=== PATIENT | male | born 1955 | race Caucasian/White ===

== ENCOUNTER 2016-06-04 16:48 | Observation (INO) | payer BC ==
[~2016-06-04] VITALS: Ht 180.3 cm; Wt 83.6 kg
--- NOTE | ~2016-06-04 | ESTC ---
Cardiac Perfusion Imaging Demographics Patient Name MARIE Linares Gender Male Patient Number [id number] Race Visit Number [id number] [place] [id number] Room Number G6338 Accession Number [id number] Height 71 inches Date of 1955 Weight 180 pounds Interpreting Cooper Haley Date of study 06/05/2016 Physician Supervising /CARMEN Haley NM Technologist Emiliano Martinez MD Ordering Physician Cooper Haley Stress Christina Ray MD voice intercept technician RDCS, RVT Renée Linares Stress ECG Reading Cooper Haley Nurse Chiki Soares Physician Procedure Procedure Type: Nuclear Stress Test:Cardiolite Stress Test Procedure Start time: 06/05/2016 12:00 Indications: Chest pain. Risk Factors The patient risk factors include:prior PCI on 03/09/2005;former tobacco use, treated hypertension, last creatinine: 0.9 mg/dl and creatinine clearance: 100.8 ml/min. Conclusions Summary No TID. Small to medium reversible moderate to severe defect involving the basal half of lateral wall. Normal EF and WM. DTS:3(Moderate risk). Stress Protocols Resting ECG RSR. Pre-stress physical exam: Un changed. Predicted HR: 160 bpm ECG Findings [address] depression inferolateral leads consistent with ischemia. Arrhythmias PVCs. One triplet. Symptoms No chest pain. Stress Interpretation Duration:8:18 mins. Acheived:96% MPHR. METs:10.10. DP:31 K. Hypertensive BP response. Reason for termination:Fatigue and SOB. EKG:Positive for ischemia. PVCs and one triplet. DTS:3(Moderate risk). Imaging Results High risk findings Summed scores - Summed stress score: 2 - Summed rest score: 1 - Summed difference score: 1 Stress ejection Ejection fraction:63 % EDV :93 ml ESV :34 ml Stroke volume :59 ml LV mass :144 gr LV size:Normal Normal LV function Imaging Protocols Rest Stress Isotope:Tc99m Sestamibi IV Isotope: Tc99m Sestamibi IV Isotope dose:12.4 mCi Isotope dose:38.1 mCi Date:06/05/2016 10:10 Date:06/05/2016 11:53 Technique: SPECT Technique: Gated Supine SPECT Supine Scan Time:45-60 minutes post Scan Time:15-30 minutes post injection injection Medical History Admission Medications + +------+ + + +--------+ !Name !Dosage!Times per day !Start date !Stop date !Details ! + +------+ + + +--------+ !Beta Narcisa (any) ! ! ! ! ! ! + +------+ + + +--------+ Admission Data Admission date: 06/04/2016 Admission Time: 18:50 Hospital Status: Inpatient. Signatures dtt: Sudha Gamboa dtd: 06/05/16 [facility] Physician Self Edit
--- NOTE | ~2016-06-04 | HP ---
PATIENT'S NAME: DUSTIN SALAZAR [facility] AGE: 61 Y [address] ROOM: G6338 [place], [place] [address] LOCATION: GPCU ADMIT DATE: 06/04/2016 History & Physical DISCHARGE DATE: FAMILY PHYSICIAN: Benja Pitt MD ATTENDING PHYSICIAN: Sudha Gamboa DATE OF SERVICE: CHIEF COMPLAINT: Chest pain and tingling. HISTORY OF PRESENT ILLNESS: The patient is a 61-year-old male, who presented to the ER with chest pain and tingling in his upper extremities. He was seen by Dr. Gamboa, timber selector and because I had seen the patient earlier in the week for an upper respiratory tract infection that was unresponsive to outpatient therapy with 2 different antibiotics. I was asked to see him for medical illness. Historically, he saw me in the office a couple of days ago and he was treated with Levaquin for URI and bronchitis that were slow to resolve. He had been on Rocephin and Zithromax prior to me seeing him. In my office, his chest x- ray showed haziness in both lower lobes, but no krunal infiltrate and heart size in the upper limits of normal. He did not complain of exertional chest pain at that time. Here, he has presented and by the time I see him, he has been evaluated by Dr. Gamboa and we are going to admit him for observation because he has an elevated CPK at around 400 and elevated CPK around 7.1. However, his troponin was normal. The rest of his labs were unremarkable. Follow along, we will leave him on Levaquin and gave him some breathing treatments and have Dr. Gamboa direct his cardiac workup. Dr. Gamboa have reviewed his chest x-ray and Dr. Gamboa thought he had have perhaps a little fluid in his left lower lobe and had an elevated D-dimer and mild low-grade cardiomegaly so a CAT scan was ordered with PE protocol and results are pending. CURRENT MEDICATIONS: 1. Levaquin 750 a day. 2. Labetalol 100 mg a day. 3. Cough medicine with codeine as needed. 4. Finasteride 5 mg a day. 5. Temazepam 30 mg a day. 6. Atorvastatin 80 mg a day. 7. Lisinopril 10 mg a day. 8. Aspirin 81 mg a day. PATIENT'S NAME: DUSTIN SALAZAR [facility] AGE: 61 Y [address] ROOM: [place] [id number] LOCATION: GPCU ADMIT DATE: 06/04/2016 History & Physical DISCHARGE DATE: FAMILY PHYSICIAN: Benja Pitt MD ATTENDING PHYSICIAN: Sudha Gamboa 9. Align daily. 10. Prilosec 20 mg a day. 11. Ibuprofen 200. ALLERGIES TO MEDICATIONS: No known drug allergies. PREVIOUS OPERATIONS: See nurse's notes. SOCIAL HISTORY: Does not smoke at this time. FAMILY HISTORY: Per Dr. Gamboa. REVIEW OF SYSTEMS: Positive for recent URI and bronchitis, unresponsive thus far to outpatient therapy. Positive for hypertension. Positive for BPH. Positive for insomnia. Positive for hyperlipidemia. Positive for hypertension. Positive for GERD. Otherwise, see nurse's database form. PHYSICAL EXAMINATION: GENERAL: Male, lying in the cart, oriented to person, place, time, and competent. When I see him, he does not complain of chest pain or tingling. HEENT: Shows eyes unremarkable. TMs not visualized. Posterior pharynx is slightly erythematous. NECK: Unremarkable. LUNGS: Clear. I do not hear wheeze or rub. HEART: Shows no murmur, gallop, or rub. ABDOMEN: Soft without point tenderness. PELVIC AND RECTAL: Not done. EXTREMITIES: Unremarkable. NEUROLOGIC: Grossly intact. ASSESSMENT: 1. Chest pain with tingling and elevated D-dimer and elevated CPK with normal troponin. 2. Recent upper respiratory tract infection and bronchitis, unresponsive to outpatient therapy. Currently on Levaquin x2 days. 3. Hypertension, essential. 4. Benign prostatic hypertrophy. 5. Insomnia. 6. Hyperlipidemia. 7. Gastroesophageal reflux disease. PATIENT'S NAME: DUSTIN SALAZAR [facility] AGE: 61 Y [address] ROOM: [place] [address] LOCATION: GPCU ADMIT DATE: 06/04/2016 History & Physical DISCHARGE DATE: FAMILY PHYSICIAN: Benja Pitt MD ATTENDING PHYSICIAN: Sudha Gamboa PLAN: Per Dr. Gamboa. MD OLGA SUTHERLAND/ericka /[id number] D: [id number] T: [id number] HISTORY & PHYSICAL
--- NOTE | ~2016-06-04 | HP ---
PATIENT'S NAME: DUSTIN SALAZAR [facility] AGE: 61 Y [address] ROOM: G6338 [place], [place] [address] LOCATION: GPCU ADMIT DATE: 06/04/2016 History & Physical DISCHARGE DATE: FAMILY PHYSICIAN: Benja Pitt MD ATTENDING PHYSICIAN: Sudha Gamboa DATE OF SERVICE: PATIENT OF: Fredi Tan MD. HISTORY OF PRESENT ILLNESS: Mr. Salazar is a 61-year-old male patient who was not feeling well this afternoon and he called the natural resources professor. He had a multivessel stenting number of years ago and his symptoms were somewhat reminiscent of the symptoms prior to his stenting and so his called me. I met Mr. Salazar in the emergency room where he was beginning to feel a little better. His illness started about 3 weeks earlier with possibly low-grade fever and cough and phlegm, for which he was seen in [facility]. He was prescribed Z- Mitesh. After that, he had a 2nd course of antibiotics from routine followup he had with me. He still continued to have the same symptoms and he was seen by Dr. Tan yesterday and his chest x-ray really did not show anything significant, and he was started on Levaquin yesterday. His sputum continues to be green without any hemoptysis. He is somewhat wheezy and somewhat short of breath. He also has noted diarrhea about few times over the last 48 hours. Today, he was staying fairly active and was doing some work around the house when he all of a sudden began to notice somewhat weak and possibly lightheaded. He went and sat in a recliner and got his blood pressure checked, which was 180 systolic. He started to note that his arms were going to sleep and his legs were tingly. These symptoms are somewhat similar to the symptoms he had prior to having stents put in his heart arteries number of years ago. He called natural resources professor and they gave him aspirin and 3 nitroglycerins en route and currently he has most of his symptoms resolved except the numbness in his arms. He also notes that his teeth hurt and there was some burning in his neck during all these episodes. The patient has never had any chest pains before. Currently, he does not complain about any shortness of breath. His cough, however, is not getting better. He is functional class 2 with no paroxysmal nocturnal dyspnea or orthopnea. He denies any lightheadedness, dizziness, syncope, presyncope, palpitations, or ankle swelling. The patient has history of hypertension and elevated cholesterol. He is not a diabetic. He never smoked and there is family history of premature coronary PATIENT'S NAME: DUSTIN SALAZAR [facility] AGE: 61 Y [address] ROOM: [place] [address] [facility] ADMIT DATE: 06/04/2016 History & Physical DISCHARGE DATE: FAMILY PHYSICIAN: Benja Pitt MD ATTENDING PHYSICIAN: Sudha Gamboa artery disease. There is no prior history of [place]. He does have a history of multivessel stenting. He denies rheumatic fever, heart murmur, heart failure, dilated or enlarged heart, or any diagnosed arrhythmias. There was a suspicion that at one point he may have had atrial fibrillation, but this was never documented. This was during a postop period after he had surgery done on his right hand. MEDICATIONS: His current list of medications are, 1. Labetalol 1 daily. 2. Lisinopril 10 b.i.d. 3. Atorvastatin 40 mg 1 a day. 4. Temazepam 30 mg at bedtime. 5. Levaquin. ALLERGIES: LIPITOR WHICH CAUSES HIS LEGS TO TINGLE. PAST MEDICAL HISTORY: 1. History of left shoulder surgery. 2. Left side of his face was hurt recently and has a bruise on it. 3. Right hand surgery. 4. Fracture of C-spine x2 number of years ago. 5. Right foot fracture. SOCIAL HISTORY: The patient is currently unemployed. His appetite is poor. He has lost about 15 pounds in weight. He denies abusing alcohol. Sleep is fair. FAMILY HISTORY: Positive for premature coronary artery disease. REVIEW OF SYSTEMS: 12-point review of systems reveal, 1. The patient has mostly a head cold and sinus problems. 2. Heartburns. 3. Kidney stone. 4. Decreased urinary stream. 5. DJD. 6. Skin cancer. PHYSICAL EXAMINATION: VITAL SIGNS: On examination, his blood pressure is 160/80, heart rate is 60s and regular, respirations are 18, and afebrile. PATIENT'S NAME: DUSTIN SALAZAR [facility] AGE: 61 Y [address] ROOM: [facility] [place], [place] [address] LOCATION: GPCU ADMIT DATE: 06/04/2016 History & Physical DISCHARGE DATE: FAMILY PHYSICIAN: Benja Pitt MD ATTENDING PHYSICIAN: Sudha Gamboa HEENT: Normal. NECK: Supple with no JVD, thyromegaly, lymphadenopathy, or carotid bruit. CARDIAC: PMI is not well located. First and second heart sounds are regular. There are no added sounds or murmurs. CHEST: Mostly clear that I do not hear any crackles or extensive wheezing at this time. ABDOMEN: Soft and nontender. Bowel sounds are normally present. EXTREMITIES: Reveal no edema. Central nervous system is intact. ASSESSMENT: A 61-year-old male patient with hypertension, hyperlipidemia, and family history of premature coronary artery disease and known multivessel stenting number of years ago presents with symptoms of tingling in his hands as well as his legs along with some burning in his throat as well as his teeth were hurting him today. These were some of the symptoms he felt prior to his PCI. His initial EKG shows an occasional PVC. There are no acute changes noted. His troponins are negative. Initial troponin is negative. The patient since then has been feeling improved. The patient also has been having a respiratory infection of some sort for the past 3 weeks and coughing a lot. His chest x-ray shows that the right upper hilum looks a little bit more prominent. RECOMMENDATIONS: We will admit him to PCU, rule him out, get an echocardiogram, possibly do a stress testing. If the D-dimer is elevated, we will get a CT of the chest with PE protocol. I have called and talked with Dr. Tan regarding his cough and he is going to stop by and make sure that he has seen him today. MD BLANK OLEARY/ericka /[id number]: [id number] HISTORY & PHYSICAL
--- NOTE | ~2016-06-04 | ECHO ---
Transthoracic Echocardiography Report (TTE) Demographics Patient Name DUSTIN SALAZAR Date of Study 06/05/2016 Patient Number [id number] Visit Number [id number] Date of 1955 Room Number G6338 Gender Male Number Age 61 year(s) Referring Cooper Haley Spinning Operator Brooklyn Ryan Physician MD Christina Ray [facility], Yoandy Bazzi MD RVT Physician Interpreting Cooper Haley Rack Washer Physician Supervising Ordering Cooper Haley MD/MLP Physician Nurse Stress Postal Mail Carrier Conclusions Contractility Score Summary Normal Left Ventricular contractility was noted. Summary The estimated left ventricular ejection fraction is 60% with normal WM.The left ventricle is normal in size .Mild concentric left ventricular hypertrophy. Mild mitral regurgitation by color Doppler. Procedure Type of Study TTE procedure:2D Echocardiogram, M-Mode, Doppler , Color Doppler. Procedure Date Date: 06/05/2016 Start: 07:30 AM Study Location: Inpatient Portable Technical Quality: Adequate visualization Indications:Chest pain. Appropriate Use Criteria: 9 Patient Status: Routine HR: 54 bpm BP: 138/79 mmHg M-Mode/2D Measurements LV Diastolic Dimension: 2.95 cm LV Systolic Dimension: 2.01 cm LV Septum Diastolic: 1.22 cm LV PW Diastolic: 1.31 cm AO Root Dimension: 2.7 cm Cardiac Output: 4.82 l/min LA Dimension: 3.9 cm LVOT: 2.1 cm LVOT VTI: 25.8 cm RV Base: 3.58 cm LV Stroke volume: 89.32 ml RV Length: 6.43 cm TAPSE: 2.06 cm TDI-S': 13.2 cm/s Doppler Measurements AV Peak Velocity: 1.31 m/s MV Peak E-Wave: 0.87 m/s AV Peak Gradient: 6.86 mmHg MV Peak A-Wave: 0.61 m/s AV Mean Gradient: 4 mmHg MV E/A Ratio: 1.44 LVOT Peak Velocity: 1.15 m/s MV Deceleration Time: 201 msec TR Velocity:1.63 m/s PV Peak Velocity: 1.21 m/s TR Gradient:10.63 mmHg PV Peak Gradient: 5.86 mmHg A' Septal Velocity: 0.08 m/s E' Septal Velocity: 0.09 m/s A' Lateral Velocity: 0.14 m/s E' Lateral Velocity: 0.13 m/s Findings Left Ventricle The left ventricle is normal in size,EF and WM.Mild concentric left ventricular hypertrophy. Right Ventricle Normal right ventricle structure and function. Left Atrium Normal left atrial size. Right Atrium Normal right atrial size. Mitral Valve Normal mitral valve structure and function. Mild mitral regurgitation by color Doppler. Aortic Valve Normal aortic valve structure and function. Tricuspid Valve Normal tricuspid valve structure and function. Trivial tricuspid regurgitation by color Doppler. Pulmonic Valve Normal pulmonic valve structure and function. Trivial pulmonic valve regurgitation by color Doppler. Pericardial Effusion No evidence of pericardial effusion. Miscellaneous Visualized portions of the aortic root and ascending aorta appear normal in size. Pleural Effusion No evidence of pleural effusion. Contractility Score LV regional wall motion:(0-Non visualized 1-Normal 2-Hypokinesis 3-Akinesis 4-Dyskinesis 5-Aneurysm) Signature dtt: Sudha Gamboa dtd: 06/05/16 0730 Physician Self Edit
--- NOTE | ~2016-06-04 | DS ---
PATIENT'S NAME: DUSTIN SALAZAR [facility] AGE: 61 Y [address] ROOM: [facility] [place], [place] [address] LOCATION: GPCU ADMIT DATE: 06/04/2016 Discharge Summary DISCHARGE DATE: 06/06/2016 FAMILY PHYSICIAN: Benja Pitt MD ATTENDING PHYSICIAN: Sudha Gamboa DISCHARGE DIAGNOSES: 1. Cough secondary to postviral syndrome. 2. Neck pain and teeth pain, possibly anginal equivalent. Evaluation revealed a 60% mid left anterior descending lesion with iFR of 0.94. Previously placed stents were patent. Normal ejection fraction. 3. Hypertension, under control. 4. LDL is 80. DISCHARGE INSTRUCTIONS: 1. Dietary instructions. 2. Groin precautions. 3. Nitroglycerin instructions. 4. Follow up with Dr. Tan in 7 days. 5. Follow up with myself in 2 weeks. 6. Activity as tolerated. DISCHARGE MEDICATIONS: 1. Lisinopril 10 mg twice a day. 2. Labetalol 100 mg at night. 3. Levofloxacin 750 mg once a day for a total of 10 days. 4. Omeprazole 20 mg once a day. 5. Temazepam 30 mg at bedtime. 6. Cough syrup. 7. Proscar 5 mg every night at bedtime. 8. Rosuvastatin 40 mg a day. 9. Align probiotic. 10. Lotensin and hydrochlorothiazide 10/12.5 b.i.d. 11. Ativan 0.25 mg b.i.d. p.r.n., #30, with no refills. 12. Nitroglycerin 0.4 mg sublingual p.r.n. chest pain. HOSPITAL COURSE: The patient was admitted to the PCU and was ruled out for [place]. His D-dimer was elevated. A CT chest was done which was negative. Because of the atypical throat and teeth pain, the patient underwent a Cardiolite study which was positive for ischemia, so a cardiac catheterization procedure was performed. This revealed a mid LAD lesion of 60% with an iFR of 0.94. Medical treatment was then recommended. His stress test reveals no TID. He has a small to medium, reversible, moderate to severe defect involving the basal half of the lateral wall which was the reason for the catheterization. His Ramirez Treadmill Score was 3. He had normal EF and wall PATIENT'S NAME: DUSTIN SALAZAR [facility] AGE: 61 Y [address] ROOM: [place] [address] LOCATION: GPCU ADMIT DATE: 06/04/2016 Discharge Summary DISCHARGE DATE: 06/06/2016 FAMILY PHYSICIAN: Benja Pitt MD ATTENDING PHYSICIAN: Sudha Gamboa. RECOMMENDATIONS: The patient will be managed with aggressive secondary prevention measures and watch him for any symptoms that he might develop. MD BLANK OLEARY/ericka /[id number] d: 06/15/160 t: 06/18/16 0745, DISCHARGE SUMMARY
--- NOTE | ~2016-06-04 | CATH ---
Cardiac Diagnostic + PCI Report Demographics Patient Name MARIE Linares Gender Male Date of 1955 Age 61 year(s) Patient Number [id number] Date of Study 06/06/2016 Visit Number [id number] Room Number G6[address] [place] [id number] Ht 180.34 cm Wt 81.65 kg Referring Cooper Primary Physician Physician Sudha BURDEN Performing Cooper Secondary Physician Physician Sudha BURDEN Diagnostic Cooper Assisting Physician Physician Sudha BURDEN Interventional Cooper Physician Chalk Machine Operator Physician Sudha BURDEN Findings and Conclusions Diagnostic Findings and Conclusion Stents seen LVEDP 12 Mild to moderate CAD Stents LAD, LCx, and RCA are patent Diagnostic Recommendations iFR LAD Interventional Findings and Conclusion iFR LAD lesion is 0.94 Interventional Recommendations Aggressive secondary prevention measures. Procedure Description The patient was brought to the diagnostic cardiac catheterization-EP laboratory in the fasting, non-sedated state. Informed consent was obtained in the written and verbal form after the risks and benefits were explained. The patient had no further questions and agreed to proceed. The planned puncture-incision site(s) were shaved and prepped with ChloraPrep and draped in the usual sterile manner. Conscious sedation, supplemental oxygen, and pain control medications were delivered by a registered nurse under physician guidance. Surface ECG rhythm, blood pressure measurement, and pulse oximetry were monitored throughout the procedure. Arterial access. The access site was infiltrated with lidocaine. The vessel was entered with the Seldinger technique. A sheath was advanced into the vessel and used for catheter placement. Selective left coronary angiography. A catheter was advanced into the left coronary vessel ostium under Fluoroscopic guidance. Contrast was injected by hand. Images were obtained in multiple projections. Selective right coronary angiography. A catheter was advanced into the right coronary vessel ostium under fluoroscopic guidance. Contrast was injected by hand. Images were obtained in multiple projections. Left heart catheterization. A catheter was advanced across the aortic valve to the left ventricle under fluoroscopic guidance. Resting hemodynamics were obtained. iFR measurement was performed. The vessel was entered with a guiding catheter. The iFR wire was normalized and then advanced across the lesion. Measurements were taken. Arterial artery hemostasis was achieved. The patient was transferred to a regular nursing floor via cart accompanied by a nurse. The patient left the laboratory in stable condition. Procedure Procedure Type Diagnostic procedure:Angiography:, Coronary Angios w/LHC PCI procedure:Additional Imaging:, FFR/iFR:, Initial Vessel Indications: Chest pain. The procedure was explained in detail to the patient. Risks, complications and alternative treatments were reviewed. Written consent was obtained. Medications Reviewed with Patient prior to Procedure. Angiographic Findings Dominance: Right Cardiac Arteries and Lesion Findings LMCA: Normal (0% Stenosis).Large, normal. LAD: Mid LAD sent is preceeded and followed by 50% diffuse lesions. Stent is patent. Diagonals are small.There is a previous stent on Mid LAD. Lesion on Mid LAD: 50% stenosis . Comments:iFR 0.94 LCx: Diffuse irregularity.Circumflex stent is patent. Mild diffuse disease.There is a previous stent on Mid CX. RCA: Stent at ostium patent. After stent 25% mild diffuse disease.There is a previous stent on Prox RCA. Lesion on Prox RCA: Mid subsection.25% stenosis . Ramus: Diffuse irregularity.Mild diffuse disease. Coronary Tree Procedure Data Procedure Date Date: 06/06/2016Start: 03:03 PMEnd: 04:01 PM Entry Locations - Retrograde Percutaneous access was performed through the Right Femoral artery (Primary location). A 6 Fr sheath was inserted. Hemostasis was successfully obtained using Perclose ProGlide (Vela). Closure Comments: Deployed by [employer].. Procedure Medications Order and Administration + + + + + !Time !Medication !Dosage !Route ! + + + + + !06/06/2016 02:55 PM !Versed !1 mg !I.V. ! + + + + + !06/06/2016 02:59 PM !Fentanyl !25 mcg !I.V. ! + + + + + !06/06/2016 03:25 PM !Heparin (ACC_3) !2500 units !I.V. bolus ! + + + + + !06/06/2016 03:36 PM !Heparin (ACC_3) !2000 units !I.V. bolus ! + + + + + !06/06/2016 03:42 PM !Heparin (ACC_3) ! !I.V. bolus ! + + + + + !06/06/2016 03:45 PM !Fentanyl !25 mcg !I.V. ! + + + + + Devices Used - A6 Fr. BS JR 4 Diag. Catheterwas used for:Right coronary angiography. - A6 Fr. BS JL 4 Diag. Catheterwas used for:Left coronary angiography. - A6 Fr. XB 3.5 Guide Catheterwas used for:Circumflex Intervention. Contrast Material - Isovue [id number] ml Fluoroscopy Time: Diagnostic: 7:24 minutes. Total: 7:24 minutes. Fluoroscopy Dose: Diagnostic: 1462 mGy. Total: 1462 mGy. Estimated Blood Loss: 100 ml. Medical History Allergies - Other:(Lipitor). Risk Factors The patient risk factors include:prior PCI on 03/09/2005;treated hypertension, last creatinine: 0.9 mg/dl, creatinine clearance: 100.8 ml/min and former tobacco use. Admission Data Admission Date: 06/04/2016 Admission Time: 06:50 PM Insurance Payors: Private health insurance. Admission Medications + +------+------+ + + + + !Medication !Dosage!Times !Last !Last !Administered !Comments ! ! ! !Per !Delivery !Delivery ! ! ! ! ! !Day !Date !Time ! ! ! + +------+------+ + + + + !Beta ! ! ! ! !Yes ! ! !Narcisa ! ! ! ! ! ! ! !(any) ! ! ! ! ! ! ! + +------+------+ + + + + Clinical Evaluation Leading to Procedure - The patient's CAD presentation was assessed as: Unstable angina. - The patient's anginal syndrome during the past two weeks was assessed as: Class IV according to the [place] [employer] Classification System (CCS). Anti-anginal medications were prescribed during the past two weeks. The medication is: Beta Blockers. Hemodynamics Condition: Rest O2 Consumption: Estimated: 228.51Heart Rate: 58 bpm Pressures (mmHg) +-----+ + !Site !Pressure ! +-----+ + !LV !163/-2 ,13 ! +-----+ + !LV !158/14 ,12 ! +-----+ + !AO !167/78 (112) ! +-----+ + !LV !174/-1 ,13 ! +-----+ + !AO !170/79 (116) ! +-----+ + !AO !173/82 (121) ! +-----+ + Valve Gradients and Areas + +---------+---------+---------+ +---------+ + !Valve !Peak !Mean !Area !Index !Flow !Source ! + +---------+---------+---------+ +---------+ + !Aortic !8 !7 ! ! ! ! ! + +---------+---------+---------+ +---------+ + !Aortic !8 !7 ! ! ! ! ! + +---------+---------+---------+ +---------+ + Shunts Oxygen Values O2 Capacity 168.64 O2 Consumption 228.51 Discharge Data Discharge Date: 06/06/2016 Hospital Status: Inpatient Signatures dtt: Sudha Gamboa dtd: 06/06/16 1503 Physician Self Edit
[2016-06-04 17:18] LABS: BASOPHIL % 0.3 %; EOSINOPHIL # 0.3 K/uL (0.0-0.5); EOSINOPHIL % 3.8 %; HEMATOCRIT 38.1 % (37.0-53.0); HEMOGLOBIN 12.4 g/dL (11.0-16.0); IMMATURE GRANULOCYTE % 0.5 %; LYMPHOCYTE # 1.6 K/uL (0.8-4.0); LYMPHOCYTE % 23.6 %; MCH 29.4 pg (27.0-34.0); MCHC 32.5 gm/dL (32.0-36.5); MCV 90.3 fl (83.0-98.0); MONOCYTE # 0.8 K/uL (0.0-1.0); MONOCYTE % 11.4 %; MPV 11.7 fl (9.4-12.4); NEUTROPHIL % 60.4 %; NRBC % 0 /100WBC (0-0.00); PLATELET COUNT 196 K/uL (150-450); RBC 4.22 M/uL (3.50-5.50); RDW-CV 13.2 % (11.9-14.6); WBC 6.7 K/uL (4.0-11.0)
[2016-06-04 17:28] LABS: INR - (THERAPEUTIC) 1.1 (0.9-1.1); PROTIME 11.1 SECONDS (9.6-11.1); PTT 28 SECONDS (25-32)
[2016-06-04 17:38] LABS: ALBUMIN 3.5 gm/dL (3.5-5.0); ALK PHOS 68 IU/L (33-138); ALT 35 IU/L (12-78); ANION GAP 15.1 (10.0-19.0); AST 34 IU/L (10-40); BLOOD UREA NITROGEN 17 mg/dL (6-24); CALCIUM 8.3 mg/dL (8.5-10.5); CHLORIDE 105 mMol/L (96-110); CO2 23 mMol/L (22-32); CPK 441 IU/L (35-332); CREATININE 1.1 mg/dL (0.6-1.3); ESTIMATED GFR (MDRD EQUATION) > 60; MAGNESIUM 1.9 mg/dL (1.3-2.6); POTASSIUM 4.1 mMol/L (3.7-5.1); SODIUM 139 mMol/L (135-145); TOTAL PROTEIN 6.4 g/dL (6.0-8.4)
[2016-06-04 17:39] LABS: TOTAL BILIRUBIN 0.4 mg/dL (0.0-1.5)
[2016-06-04 19:40] LABS: CPK 418 IU/L (35-332)
[2016-06-04] MEDS ORDERED: TRANDATE OR NO100 MG PO (20:23)
[2016-06-04] MEDS ORDERED: LEVAQUIN 750 M750 MG PO (20:23)
[2016-06-04] MEDS ORDERED: GUAIFEN-CODEIN118 ML PO (20:24)
[2016-06-04] MEDS ORDERED: RESTORIL30 MG PO (20:25)
[2016-06-04] MEDS ORDERED: LIPITOR80 MG PO (20:25)
[2016-06-04] MEDS ORDERED: PROSCAR5 MG PO (20:25)
[2016-06-04] MEDS ORDERED: PRINIVIL OR ZES10 MG PO (20:25)
[2016-06-04] MEDS ORDERED: ASPIRIN LO-DOSE81 MG PO (20:26)
[2016-06-04] MEDS ORDERED: ALIGN4 MG PO (20:26)
[2016-06-04] MEDS ORDERED: PRILOSEC20 MG PO (20:26)
[2016-06-04] MEDS ORDERED: ADVIL200 MG PO (20:26)
--- NOTE | 2016-06-04 20:48 | NUR ---
Patient is 61yo male admitted to observation this evening for rule out acute coronary syndrome. patient denies chest pains. however, he states he had numbness and tingling of his hands and feet and the ambulance was called and patient was brought to ER. saline lock is noted in right hand without erythema or edema noted at site. Education is given as documented. patient denies questions. pneumatics are on bilat calves. allergy bracelet is on. patient states he reacted only to the trade name Lipitor. states he takes the generic without any headaches or numbness/tingling of hand and feet. Call light is within reach. patient denies needs at this time. Report is given to MICHELE Pastrana.
--- NOTE | 2016-06-05 05:35 | NUR ---
Significant Event: VSS.RA. PT DENIES CHEST PAIN. DENIES NUMBNESS AND TINGLING. PT IS INDEPENDENT. C/O COUGH. CHEST CT DONE W/O CONTRAST. CARDIAC ENZYMES DONE. HEPARIN GTT STARTED PER ACS PROTOCOL, CURRENTLY AT 1000U/HR AND NS @ 125ML/HR. NPO AFTER MN. Follow up:ECHO AND CONT TO MONITOR
[2016-06-05 06:49] LABS: ANION GAP 15.8 (10.0-19.0); BLOOD UREA NITROGEN 12 mg/dL (6-24); CALCIUM 8.2 mg/dL (8.5-10.5); CHLORIDE 111 mMol/L (96-110); CO2 22 mMol/L (22-32); CREATININE 0.9 mg/dL (0.6-1.3); ESTIMATED GFR (MDRD EQUATION) > 60; POTASSIUM 3.8 mMol/L (3.7-5.1); SODIUM 145 mMol/L (135-145)
--- NOTE | 2016-06-05 11:35 | NUR ---
Introduced self and CM role to Jason. He tells me that he lives at home in [place] with his , Carolee. Plan is to return there when he is able to. He does his own medications at home and has no issues with continuing to do so. Denies any needs for HHC/DME upon dismissal. Plan it to return home when able. No other questions, needs or concerns. CM to continue to follow and assist.
--- NOTE | 2016-06-05 18:47 | NUR ---
Significant Event: A/O X 3. UP IN ROOM. ECHO/STRESS TESTING TODAY. Follow up: NPO POST CLEAR LIQUID BREAKFAST FOR HEART CATH AT 1400.
--- NOTE | 2016-06-06 04:44 | NUR ---
Significant Event: VSS. RA. Pt up ad molly. NPO after midnight for heart cath. liquid breakfast. heparin running per protocol, currently @ 1000u/hr and NS @ 125ml/h. Follow up:Heart cath
--- NOTE | 2016-06-06 17:36 | NUR ---
Significant Events: Patient is very pleasant and A&Ox3. VS: HR: 50's, SBP: 140-170's. Patient is on room air and has not reported any chest pain, numbness, or tingling. Patient voided 5 times with 1 formed BM. Patient had a heart cath via right groin performed without intervention. Site C/D/I, soft, and CSM WNL. Back to the floor at 1600. Bedrest x 4 hours and then patient can d/c to home after 6 hours (2200). and daughter present this afternoon. NS infusing at 125 ml/hr through right had x 750 ml. Heparin d/c'd after procedure. Follow-up: Continue post-procedural cares. Continue as per plan of care. Discharge to home tonight.
[2016-06-06] MEDS ORDERED: ALBUTEROL2.5 MG/31 INH (19:21)
[2016-06-06] MEDS ORDERED: LOTENSIN HCT 11 EACH PO (19:24)
[2016-06-06] MEDS ORDERED: LORAZEPAM0.5 MG PO (19:25)
[2016-06-06] MEDS ORDERED: ROSUVASTATIN CA40 MG PO (19:25)
[2016-06-06] MEDS ORDERED: NITROSTAT0.4 MG SL (19:26)
--- NOTE | 2016-06-06 22:15 | NUR ---
Pt was discharge to home at 2205. Will be transported to home by private car with . Reviewed home med list and new medications with and patient. Pt was reminded to make follow up appointments with Dr. Mabry and Dr. Tan. Patient's was given the medication scripts for their pharmacy. Vitals @ dismissal were: BP 145/72 HR 62 Resp 16 Sat 97% temp 98.6. IV was DC'd. Also reminded patient that their groin site dressing is to be removed [address] bandaid on site. Patient denied pain.
== END 2016-06-06 22:22 | disposition disaster alternative care site (69) ==
LOC: GMED 16:48 → GPCU 18:50
PROVIDERS: Emergency Medicine; ADMIT Internal Medicine Interventional Cardiology
DX: R05 Cough (principal); G93.3 Postviral and related fatigue syndromes; I25.10 Atherosclerotic heart disease of native coronary artery without angina pectoris; R07.9 Chest pain, unspecified; J06.9 Acute upper respiratory infection, unspecified; J40 Bronchitis, not specified as acute or chronic; R20.2 Paresthesia of skin; R79.1 Abnormal coagulation profile; R74.8 Abnormal levels of other serum enzymes; I10 Essential (primary) hypertension; K21.9 Gastro-esophageal reflux disease without esophagitis; E78.5 Hyperlipidemia, unspecified; G47.00 Insomnia, unspecified; N40.0 Benign prostatic hyperplasia without lower urinary tract symptoms; Z88.8 Allergy status to other drugs, medicaments and biological substances; Z79.82 Long term (current) use of aspirin; Z79.899 Other long term (current) drug therapy; Z98.890 Other specified postprocedural states
CPT/HCPCS: A9500; C1760; C1769; C1887; G0378; J1644; J2250; J3010; J7030; J7060

== ENCOUNTER → 2016-06-04 | Outpatient (CLI) | payer BC ==
[~2016-06-04] MED LIST: ADVIL200 MG PO; ALBUTEROL2.5 MG/31 INH; ALIGN4 MG PO; ASPIRIN LO-DOSE81 MG PO; GUAIFEN-CODEIN118 ML PO; LEVAQUIN 750 M750 MG PO; LIPITOR80 MG PO; LORAZEPAM0.5 MG PO; LOTENSIN HCT 11 EACH PO; NITROSTAT0.4 MG SL; PRILOSEC20 MG PO; PRINIVIL OR ZES10 MG PO; PROSCAR5 MG PO; RESTORIL30 MG PO; ROSUVASTATIN CA40 MG PO; TRANDATE OR NO100 MG PO
== END | disposition disaster alternative care site (69) ==
LOC: GAMB 16:11
DX: R07.9 Chest pain, unspecified (principal); R20.2 Paresthesia of skin; I10 Essential (primary) hypertension; Z79.2 Long term (current) use of antibiotics; Z79.899 Other long term (current) drug therapy
CPT/HCPCS: J0583; J1644; J2250; J3010; J7030; J7060